=== PATIENT | male | born 1970 | race Caucasian/White ===

== ENCOUNTER 2017-11-03 11:20 | Emergency (ER) | payer MEDICARE, OTHER ==
[2017-11-03 11:25] VITALS: BP 146/80
--- NOTE | 2017-11-03 11:34 | ER Document Report ---
ED Medical Screen (RME) - General Chief Complaint: Fall Stated Complaint: FALL Time Seen by Provider: 11/03/17 11:25 Notes: 47 years old presents today with frequent falls and memory loss for unknown reason. No focal weaknesses, denies any headache. Denies any other constitutional symptoms. Had cervical spinal fusion done in the past. TRAVEL OUTSIDE OF THE [place] IN LAST 30 DAYS: No - Related Data Allergies/Adverse Reactions: No Known Allergies Allergy (Unverified 02/02/13 12:50) Past Medical History - Social History Frequency of alcohol use: None Drug Abuse: None Renal/ Medical History: Reports: Hx Kidney Stones. Denies: Hx Peritoneal Dialysis Past Surgical History: Reports: Hx Orthopedic Surgery Physical Exam - Vital signs Vitals: Temp Pulse Resp BP Pulse Ox 99.0 F 64 16 146/80 H 98 11/03/17 11:24 11/03/17 11:24 11/03/17 11:24 11/03/17 11:24 11/03/17 11:24 Course - Vital Signs Vital signs: Temp Pulse Resp BP Pulse Ox 99.0 F 64 16 146/80 H 98 11/03/17 11:24 11/03/17 11:24 11/03/17 11:24 11/03/17 11:24 11/03/17 11:24
--- NOTE | 2017-11-03 11:59 | RADIOLOGY REPORT (SQ) ---
EXAM DESCRIPTION: CT HEAD WITHOUT COMPLETED DATE/TIME: 11/03/2017 11:47 am REASON FOR STUDY: Fall, memory loss COMPARISON: None. TECHNIQUE: Axial images acquired through the brain without intravenous contrast. Images reviewed wi th bone, brain and subdural windows. Additional sagittal and coronal reconstructions were generated. Images stored on PACS. All CT scanners at this facility use dose modulation, iterative reconstruction, and/or weight based d osing when appropriate to reduce radiation dose to as low as reasonably achievable (ALARA). [facility]: Dose Right [facility]: CareDose [facility]: Dose Right [facility]: Teradose 4D [facility]: Smart Peatix RADIATION DOSE: CT Rad equipment meets quality standard of care and radiation dose reduction techniq ues were employed. CTDIvol: 53.2 mGy. DLP: 1017 mGy-cm. mGy. LIMITATIONS: None. FINDINGS: VENTRICLES: Normal size and contour. CEREBRUM: No masses. No hemorrhage. No midline shift. No evidence for acute infarction. Normal gra y/white matter differentiation. No areas of low density in the white matter. CEREBELLUM: No masses. No hemorrhage. No alteration of density. No evidence for acute infarction. EXTRAAXIAL SPACES: No fluid collections. No masses. ORBITS AND GLOBE: No intra- or extraconal masses. Normal contour of globe without masses. CALVARIUM: No fracture. PARANASAL SINUSES: No fluid or mucosal thickening. SOFT TISSUES: No mass or hematoma. OTHER: No other significant finding. IMPRESSION: NO ACUTE INTRACRANIAL IMAGING FINDINGS. EVIDENCE OF ACUTE STROKE: NO. COMMENT: Quality ID # [id number]: Final reports with documentation of one or more dose reduction techniques (e.g., Automated exposure control, adjustment of the mA and/or kV according to patient size, use of iterative reconstruction technique) TECHNICAL DOCUMENTATION: JOB ID: [id number] [employer]- All Rights Reserved Reading location - IP/workstation name: [email or web address]
[2017-11-03 12:32] LABS: HEMATOCRIT 43.9 % (37.9-51.0); HEMOGLOBIN 15.3 g/dL (13.5-17.0); MEAN CORPUSCULAR HGB CONC 34.9 g/dL (32.0-36.0); MEAN CORPUSCULAR VOLUME 92 fl (80-97); PLATELET COUNT 219 10^3/uL (150-450); RED BLOOD COUNT 4.79 10^6/uL (4.35-5.55); RED CELL DISTRIBUTION WIDTH 13.6 % (11.5-14.0); WHITE BLOOD COUNT 6.6 10^3/uL (4.0-10.5)
[2017-11-03 12:55] LABS: ALANINE AMINOTRANSFERASE 74 U/L (21-72); ALKALINE PHOSPHATASE 70 U/L (38-126); ANION GAP 12 (5-19); ASPARTATE AMINO TRANSFERASE 37 U/L (17-59); BILIRUBIN,DIRECT 0.2 mg/dL (0.0-0.4); BILIRUBIN,TOTAL 0.4 mg/dL (0.2-1.3); BLOOD UREA NITROGEN 21 mg/dL (7-20); CALCIUM 9.5 mg/dL (8.4-10.2); CARBON DIOXIDE 25 mmol/L (22-30); CHLORIDE 106 mmol/L (98-107); GLUCOSE 93 mg/dL (75-110); POTASSIUM 4.7 mmol/L (3.6-5.0); SODIUM 142.5 mmol/L (137-145); TOTAL PROTEIN 6.9 g/dL (6.3-8.2)
--- NOTE | 2017-11-03 13:17 | EKG REPORT ---
SEVERITY:- ABNORMAL ECG - SINUS RHYTHM LEFT ANTERIOR FASCICULAR BLOCK : Confirmed by: Jose Benito MD 03-Nov-2017 13:17:00
--- NOTE | 2017-11-03 14:33 | ER Document Report ---
ED General - General Chief Complaint: Fall Stated Complaint: FALL Time Seen by Provider: 11/03/17 11:25 Notes: Patient fell and hit his chin in some manner Wednesday. He has never had anything like that happen to him. He describes episodes of "missing time" that have been occurring recently about every other week for the past year or more. He simply has lapses of memory and does not remember what happened to him. He has not had any of these episodes witnessed by anyone else. He does not think he has had a seizure because he has not bitten his tongue or lost control of his bladder or bowels or other things that might indicate a seizure. On Wednesday, was a first time he is actually fallen when 1 of these episodes occurred. He woke up on the floor and he had a bruise on his chin. Patient has had some headaches for which he is taking Thomas aspirins. Also has had some blurry vision at times. Has not had any nausea or vomiting. No fever or chills. Patient was told by the [place] [facility] to come here and get a CT scan of his brain. Patient describes very bad outcome from his surgery for cervical spine fusion in 2011. 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 Patient says he walks 20-35 miles a week and or past year or so he has lost 30 pounds. He used to run marathons and participate in triathlete competition. Currently, the patient only takes trazodone for sleep and no other medications for anything. TRAVEL OUTSIDE OF THE [place] IN LAST 30 DAYS: No - Related Data Allergies/Adverse Reactions: No Known Allergies Allergy (Unverified 02/02/13 12:50) Past Medical History - Social History Smoking Status: Former Smoker Frequency of alcohol use: None Drug Abuse: None Family History: Reviewed & Not Pertinent Patient has suicidal ideation: No Patient has homicidal ideation: No - Past Medical History Cardiac Medical History: Denies: Hx Coronary Artery Disease, Hx DVT, Hx Heart Attack Endocrine Medical History: Denies: Hx Diabetes Mellitus Type 1, Hx Diabetes Mellitus Type 2 Renal/ Medical History: Reports: Hx Kidney Stones Past Surgical History: Reports: Hx Orthopedic Surgery - CERVICAL SPINAL FUSION; lumbar spine fusion Review of Systems - Review of Systems Notes: REVIEW OF SYSTEMS: CONSTITUTIONAL : Denies fever. EENT: Denies eye, ear, nose or mouth or throat pain or other symptoms except that the patient does have some bruising with soft tissue swelling at the lower mid-point of the chin. CARDIOVASCULAR: Denies chest pain. Denies feeling any irregular heartbeat or rapid heartbeat. RESPIRATORY: Denies cough, chest congestion, or shortness of breath. GASTROINTESTINAL: Denies abdominal pain or nausea, vomiting, or diarrhea. GENITOURINARY: Denies difficulty or painful urinating, urinary frequency, blood in urine. MUSCULOSKELETAL: Chronic back or neck pain. Denies joint pain or swelling. SKIN: Denies rash or skin lesions. NEUROLOGICAL: See HPI. Does have mild global, mostly frontal, headache. Headaches are relieved by Thomas aspirin. Denies sensory loss or motor deficits. ALL OTHER SYSTEMS REVIEWED AND NEGATIVE. Physical Exam - Vital signs Vitals: Temp Pulse Resp BP Pulse Ox 99.0 F 64 16 146/80 H 98 11/03/17 11:24 11/03/17 11:24 11/03/17 11:24 11/03/17 11:24 11/03/17 11:24 Interpretation: Normal - Notes Notes: PHYSICAL EXAMINATION: GENERAL: Well-appearing, in no acute distress. HEAD: Atraumatic, normocephalic. Midpoint lower chin has some mild soft tissue swelling and visible bruising. EYES: Pupils equal round and reactive to light, extraocular movements intact. No nystagmus. ENT: oropharynx clear without exudates. Moist mucous membranes. Tongue without any injuries. NECK: Normal range of motion, supple. Some postsurgical limitations on movement. LUNGS: Breath sounds clear and equal bilaterally. HEART: Regular rate and rhythm without murmurs. ABDOMEN: Soft, nontender. No guarding or rebound. No masses. BACK: No tenderness throughout entire back. EXTREMITIES: Normal range of motion without pain. NEUROLOGICAL: Normal speech, normal gait. Normal sensory, motor, and reflex exams. Awake, alert, and oriented x3. Cranial nerves normal. PSYCH: Normal mood, normal affect. SKIN: Warm, dry, no rashes. Course - Re-evaluation Re-evalutation: 11/03/17 14:54 Patient remained stable throughout his stay in the department. I provided him with copies of all of his lab results and imaging results. Discussed with patient the need for further workup to try to determine a cause for his apparent syncopal episode as well as his other memory lapse episodes. - Vital Signs Vital signs: Temp Pulse Resp BP Pulse Ox 99.0 F 64 16 146/80 H 98 11/03/17 11:24 11/03/17 11:24 11/03/17 11:24 11/03/17 11:24 11/03/17 11:24 - Laboratory Result Diagrams: 11/03/17 12:15 11/03/17 12:15 Laboratory results interpreted by me: 11/03/17 12:15 BUN 21 H ALT 74 H Discharge - Discharge Clinical Impression: Syncope Condition: Stable Disposition: HOME, SELF-CARE Additional Instructions: SYNCOPAL EPISODE: Syncope (fainting or near-fainting) can occur from many different health problems. Or it can be a simple fainting spell requiring no treatment. It is safe for you to go home, but further evaluation will likely be necessary. Your work-up may include tests for internal bleeding, heart disease, medication problems, or near-strokes. Tests are not always required, however, depending on the nature of your problem. The warning signs of an impending faint include: dizziness, lightheadedness , nausea, hot flashes, tingling, and weakness. If this happens, lay down and put your feet up, then wait until all of these symptoms have passed before standing up again. If these episodes become recurrent, or if you develop chest pain, heart palpitations, mental confusion, blurred vision, or headache, then you should call the physician, or go to the emergency room. NEAR SYNCOPAL EPISODE: Syncope or near syncope (fainting or near-fainting) can occur from many different health problems. Or it can be a simple fainting spell requiring no treatment. It is safe for you to go home, but further evaluation will likely be necessary. Your work-up may include tests for internal bleeding, heart disease, medication problems, or near-strokes. Tests are not always required, however, depending on the nature of your problem. The warning signs of an impending faint include: dizziness, lightheadedness , nausea, hot flashes, tingling, and weakness. If this happens, lay down and put your feet up, then wait until all of these symptoms have passed before standing up again. If these episodes become recurrent, or if you develop chest pain, heart palpitations, mental confusion, blurred vision, or headache, then you should call the physician, or go to the emergency room. NORMAL EXAM AND WORKUP: At this time, your examination and workup show no significant abnormality. No significant abnormal physical findings were noted. All laboratory, EKG, and imaging (x-ray, CT scans, ultrasound) studies that were ordered show no significant abnormality. Although your examination and all studies that were ordered showed no significant abnormal finding, there are no examinations and no studies that are 100% accurate. There is always the possibility that some abnormality could exist and not be detected with physical examination or within the limits and capabilities of laboratory and other studies. You should return or follow up as you were instructed on your visit today for further evaluation if your symptoms do not resolve. Your workup is not complete. You need a geriatric nursing assistant to see if you are having any irregular or abnormal heartbeat. He will also need further studies such as an EEG to rule out the possibility that you are having some form of seizure activity. FOLLOW-UP CARE: If you have been referred to a physician for follow-up care, call the physician s office for an appointment as you were instructed or within the next two days. If you experience worsening or a significant change in your symptoms, notify the physician immediately or return to the Emergency Department at any time for re-evaluation. Follow-up at the [place] [facility] as soon as possible, preferably today, so that they can begin getting you scheduled to get these other studies done.
== END 2017-11-03 14:57 | disposition home or self-care (01) ==
LOC: ER 11:20
DX: R55 Syncope and collapse (principal); S00.83XA Contusion of other part of head, initial encounter; H53.8 Other visual disturbances; W19.XXXA Unspecified fall, initial encounter
CPT/HCPCS: 36415; 70450; 80053; 82607; 82746; 85027; 93005; 93010; 99284

== ENCOUNTER 2018-01-16 14:09 | Emergency (ER) | payer OTHER ==
[2018-01-16] MEDS ORDERED: DIPH/PERTUSS(ACELL)/TETANUS VAC/PF 0.5 ML SYR (>=10YO) IM ONE (14:56)
--- NOTE | 2018-01-16 15:00 | ER Document Report ---
ED Hand/Wrist Injury - General Chief Complaint: Laceration Stated Complaint: LACERATION TO FINGER Time Seen by Provider: 01/16/18 14:41 Mode of Arrival: Ambulatory Information source: Patient Notes: Young male presents to ED for laceration to the tip of the right middle finger. He reports he was cutting his head just with an electric cutter when he grabbed the hedge clipper in the wrong place cutting his finger. Eating is under control. He is alert and oriented respirations regular and unlabored speaking in full sentences. States his last tetanus was around 1999 when he got out of the . He reports he was also bit by numerous fire ants when he accidentally stuck his hand in a fire at home that is the left hand. TRAVEL OUTSIDE OF THE [place] IN LAST 30 DAYS: No - HPI Injury to: Hand, Middle finger Onset: Just prior to arrival Where: Home, Outdoors Timing: Still present Quality of pain: Burning, Sharp Severity: Mild Pain Level: 2 Context: Laceration - Right hand, Other - Left arm ant bites - Related Data Allergies/Adverse Reactions: No Known Allergies Allergy (Unverified 02/02/13 12:50) Past Medical History - General Information source: Patient - Social History Smoking Status: Never Smoker Cigarette use (# per day): No Chew tobacco use (# tins/day): No Smoking Education Provided: No Frequency of alcohol use: None Drug Abuse: None Lives with: Family Family History: Reviewed & Not Pertinent Patient has suicidal ideation: No Patient has homicidal ideation: No - Past Medical History Cardiac Medical History: Reports: None EENT Medical History: Reports: None Neurological Medical History: Reports: None Endocrine Medical History: Reports: None Renal/ Medical History: Reports: Hx Kidney Stones Malignancy Medical History: Reports None GI Medical History: Reports: None Musculoskeletal Medical History: Reports Hx Musculoskeletal Deformity, Reports Hx Musculoskeletal Trauma Skin Medical History: Reports None Psychiatric Medical History: Reports: None Traumatic Medical History: Reports: Hx Fractures - Tib-fib ankle Infectious Medical History: Reports: None Past Surgical History: Reports: Hx Orthopedic Surgery - CERVICAL SPINAL FUSION; lumbar spine fusion, tib-fib left ankle left torn b - Immunizations Immunizations up to date: Yes Hx Diphtheria, Pertussis, Tetanus Vaccination: Yes - 01/16/18 Review of Systems - Review of Systems Constitutional: No symptoms reported EENT: No symptoms reported Cardiovascular: No symptoms reported Respiratory: No symptoms reported Gastrointestinal: No symptoms reported Genitourinary: No symptoms reported Male Genitourinary: No symptoms reported Musculoskeletal: No symptoms reported Skin: Other - ant bites to left wrist and arm laceration to right middle finger Hematologic/Lymphatic: No symptoms reported Neurological/Psychological: No symptoms reported -: Yes All other systems reviewed and negative Physical Exam - Vital signs Vitals: Temp Pulse Resp BP Pulse Ox 98.1 F 68 18 126/77 H 97 01/16/18 14:10 01/16/18 14:10 01/16/18 14:10 01/16/18 14:10 01/16/18 14:10 Interpretation: Normal - General General appearance: Appears well, Alert - HEENT Head: Normocephalic, Atraumatic Eyes: Normal Pupils: PERRL - Respiratory Respiratory status: No respiratory distress Chest status: Nontender Breath sounds: Normal Chest palpation: Normal - Cardiovascular Rhythm: Regular Heart sounds: Normal auscultation Murmur: No - Abdominal Inspection: Normal Distension: No distension Bowel sounds: Normal Tenderness: Nontender Organomegaly: No organomegaly - Back Back: Normal, Nontender - Extremities General upper extremity: Normal color, Normal ROM, Normal temperature General lower extremity: Normal inspection, Nontender, Normal color, Normal ROM , Normal temperature, Normal weight bearing. No: Nicole's sign Forearm: Tender, Other - insect bites to left arm Wrist: Tender - insect bites to left arm Hand: Laceration - laceration to middle finger - Neurological Neuro grossly intact: Yes Cognition: Normal Orientation: AAOx4 O'Brien Coma Scale Eye Opening: Spontaneous Roxana Coma Scale Verbal: Oriented O'Brien Coma Scale Motor: Obeys Commands Roxana Coma Scale Total: 15 Speech: Normal Motor strength normal: LUE, RUE, LLE, RLE Sensory: Normal - Psychological Associated symptoms: Normal affect, Normal mood - Skin Skin Temperature: Warm Skin Moisture: Dry Skin Color: Normal Course - Vital Signs Vital signs: Temp Pulse Resp BP Pulse Ox 98.1 F 68 18 126/77 H 97 01/16/18 14:10 01/16/18 14:10 01/16/18 14:10 01/16/18 14:10 01/16/18 14:10 - Diagnostic Test Radiology reviewed: Image reviewed, Reports reviewed Procedures - Immobilization Right Finger 3rd digit Pre-Proc Neuro Vasc Exam: Normal Immobilizer type: Finger protection Performed by: PCT Post-Proc Neuro Vasc Exam: Normal Alignment checked and good: Yes - Laceration/Wound Repair Right Finger 3rd digit Time completed: 16:05 Wound length (cm): 5 - total Wound's Depth, Shape: Irregular, Stellate, Other - multiple Laceration pre-procedure: Sterile PPE donned, Sterile drapes applied, Shur- Clens applied Anesthetic type: 1% Lidocaine Volume Anesthetic (mLs): 5 Wound explored: Contaminated, Foreign body removed Irrigated w/ Saline (mLs): 300 Wound Repaired With: Sutures Suture Size/Type: 4:0, Ethilon Number of Sutures: 9 Layer Closure?: No Post-procedure wound care: Sterile dressing applied, Splint applied Post-procedure NV exam normal: Yes Complications: No Discharge - Discharge Clinical Impression: Laceration of right middle finger Qualifiers: Encounter type: initial encounter Damage to nail status: without damage Foreign body presence: with foreign body Qualified Code(s): S61.222A - Laceration with foreign body of right middle finger without damage to nail, initial encounter Condition: Stable Disposition: HOME, SELF-CARE Additional Instructions: Hand Laceration A laceration on the hand can present special problems. It may be difficult to keep the wound dry. Motion of the fingers can disturb the healing edges. Your work may involve exposure to damaging chemicals or water. Keep the wound clean and dry. If you can't keep the cut dry, undisturbed, and free of chemical exposure, please discuss this with the doctor. If any water or chemical gets onto the dressing, remove it, blot the wound dry, then apply a fresh bandage. Dressings should be changed every day. If you feel the stitches pulling as you move the hand, a splint or other form of protection is needed. If any signs of infection occur (swelling, redness, increasing tenderness, red streaks, tender lumps in the armpit, or fever), see the doctor immediately. Insect Bites You have been bitten by an insect. These bites can cause two types of swelling: an initial swelling due to insect saliva or injected poison, and a late reaction due to your body's allergic reaction. This initial local reaction may be uncomfortable but is not dangerous. Often there's an itchy "hive" at the bite location. This is treated with antihistamines, cold compresses, and resting the affected body part. The later reaction often develops about the second day. The entire area becomes very swollen, red, itchy, and tender. This is an allergic reaction. Your body is attacking the leftover insect saliva or venom. This type of allergy is unpleasant, but not dangerous. We treat this swelling with cortisone -type medicine. Sometimes we use antibiotics if we're worried about infection. Antihistamines help with the itch. If you develop a fever, chills, a red streak, or swollen glands in the area of the bite, infection may be starting. Return at once. STEROID MEDICATION: You have been given an injection of medicine of the cortisone/steroid class. This medication is used to control inflammation or allergy. It is often continued as a pill for a short period of time, until the acute process subsides. There are usually no side effects from short-term use of cortisone-like medications. Some persons feel an increased sense of well-being and are not sleepy at bedtime. Long-term use of cortisone medications is best avoided, unless required for a severe condition. If your condition does not remit, or relapses after the course of corticosteroid medication, you should consult your physician. Diphenhydramine The use of diphenhydramine (Benadryl) has been recommended to control allergic symptoms. The 25 mg strength is available over- the-counter, as well as the elixir. This antihistamine is used for many symptoms. It's useful for itching, watering eyes and nose, allergic swelling, hives, and insect stings. The medication can be repeated four times daily. Age Elixir (12.5 mg/tsp) 25 mg pill 1 yr 1/4 tsp 2-3 yr 1/2 tsp 4-8 yr 1 tsp 9-14 yr 2 tsp one tab adult 1-2 tabs Antihistamines may cause drowsiness, especially with the first dose. Do not operate machinery or drive while under the effects of the medication. Do not combine the medication with alcohol, or with any other medication without talking to your doctor. Acid-Suppressing Medication You have a prescription for medicine which reduces the stomach's secretion of acid. Examples include Zantac, Tagament, and Pepcid. These drugs are often used to allow healing of ulcers or esophagitis. They may be needed to prevent recurrence of ulcers in some patients, or to prevent damage from acid reflux in the esophagus. Take all medication as prescribed, even after the pain is gone. Regular antacids may be added as needed if you have symptoms while taking this medicine. These medications sometimes are prescribed for allergic reactions because they have anti-histaminic effects and relieve the rash and itching of the reaction. There are usually no side effects from this medication. But, in rare cases and particularly in the elderly, serious problems can occur. Contact your doctor if there is fever, rash, hallucinations, confusion, or unusual bruising. Contact your doctor at once if you develop lightheadedness, black or bloody stool, or bloody vomitus. SOAP CLEANSING: Gently wash the wound daily using a mild soap (like Ivory, Phisoderm, Neutrogena). Use warm water, rubbing gently until all debris, ooze, and crusting have been washed from the wound. Allow to dry briefly (about 10 minutes) after cleaning. Repeat this cleansing at least three times a day for the first two days and then once or twice a day. ANTIBIOTIC OINTMENT PROTECTION: Your wounds are such that dressing them is not practical or optional. After cleansing, you should apply a thin coating of antibiotic ointment ( Bacitracin, not Neosporin) to the wounds at least three times daily. This lessens infection risk, and may decrease the amount of scarring. Use a q-tip or dull butter knife, not your finger, to apply this ointment. Any debris or ooze which builds up in the ointment should be gently rubbed off with a sterile gauze pad. Harder crusting may need to be gently scrubbed off with a clean wash cloth with soap and warm water, perhaps applying a warm, wet wash cloth to the wound for ten minutes first. Development of redness, severe itching, or blistering may mean allergy to the ointment. See the doctor. TETANUS IMMUNIZATION GIVEN: You have been given an immunization against tetanus. Please record this in your records. In general, a booster is needed only once every 10 years. The tetanus shot protects against tetanus or "lockjaw," which is a complication of certain wound infections (the tetanus shot cannot protect against the actual infection). The immunization site may become warm and red due to local reaction. If this occurs, apply warm compresses and take aspirin or ibuprofen to reduce inflammation and discomfort. Return for evaluation if the reaction becomes severe. Cephalexin The antibiotic you've been prescribed is a member of the cephalosporin class. This type of antibiotic covers a wide variety of infections, including those of the skin, lungs, and urinary tract. It's useful for staph infections. This antibiotic is slightly similar to the penicillin family. In rare cases , a person who is allergic to penicillin will also be allergic to this medication. If you have had a severe allergic reaction to penicillin, and have not taken this antibiotic since that time, notify your doctor. Antibiotics which cover many germs ("broad spectrum" antibiotics) are more likely to cause diarrhea or "yeast" infections. Women prone to vaginal yeast problems may suffer an attack after taking this antibiotic. In infants, oral thrush (white spots "stuck" on the cheek) or yeast diaper rash may result. See your doctor if these problems occur. Call at once if you develop itching, hives , shortness of breath, or lightheadedness. FOLLOW-UP CARE: Please return in ___3__ days for an infection check and dressing change. Your sutures should be removed in __8___ days. To facilitate a timely removal of your sutures, you may return to the Emergency Department at [facility]. You do not need to call for an appointment, but the best time to come in for suture removal is early in the morning. If you have been referred to another physician for follow-up care, call that physicians office for an appointment as you were instructed. If you experience a significant change in your laceration, or if you are concerned there may be an infection (swelling, redness, drainage, increasing tenderness, red streaks, tender lumps in the armpit or groin above the laceration, or fever) , return to the Emergency Department immediately re-evaluation. Prescriptions: Cephalexin Monohydrate [Keflex 500 mg Capsule] 500 mg PO Q6H 5 Days capsule Forms: Elevated Blood Pressure Referrals: INNA MOSES MD [Primary Care Provider] - Follow up as needed
[2018-01-16] MEDS ORDERED: LIDOCAINE 1% INJ-PF (10 MG/ML) 30 ML SDV INJ ONE (15:05)
[2018-01-16] MEDS ORDERED: LIDOCAINE 1% INJ (10 MG/ML) 10 ML MDV ONE (15:06)
--- NOTE | 2018-01-16 15:13 | RADIOLOGY REPORT (SQ) ---
EXAM DESCRIPTION: FINGER RIGHT COMPLETED DATE/TIME: 01/16/2018 3:02 pm REASON FOR STUDY: laceration to middle finger COMPARISON: None. NUMBER OF VIEWS: Three views. TECHNIQUE: AP, lateral, and oblique images acquired of the right third finger. LIMITATIONS: None. FINDINGS: MINERALIZATION: Normal. BONES: No acute fracture. No dislocation. Alignment is normal. Mild thumb carpometacarpal osteoart hrosis. SOFT TISSUES: Soft tissue defect overlying the distal 3rd digit. No radiopaque foreign body. No dis secting subcutaneous gas. OTHER: No other significant finding. IMPRESSION: 1. No acute fracture or dislocation. 2. Small soft tissue laceration overlying the distal 3rd digit. No radiopaque foreign body. COMMENT: SITE OF TRAUMA/COMPLAINT MARKED/STAMP COMPLETED: NOT APPLICABLE. TECHNICAL DOCUMENTATION: JOB ID: [id number] [employer]- All Rights Reserved Reading location - IP/workstation name: [email or web address]
[2018-01-16] MEDS ORDERED: CEPHALEXIN 500 MG CAPSULE PO ONE (16:05)
[2018-01-16] MEDS ORDERED: DEXAMETHASONE SOD PHOS INJ 10 MG/1 ML VIAL IM ONE (16:11)
[2018-01-16] MEDS ORDERED: FAMOTIDINE 20 MG TABLET PO ONE (16:11)
[2018-01-16 16:58] VITALS: BP 123/68
== END 2018-01-16 16:57 | disposition home or self-care (01) ==
LOC: ER 14:09
DX: S61.222A Laceration with foreign body of right middle finger without damage to nail, initial encounter (principal); W29.3XXA Contact with powered garden and outdoor hand tools and machinery, initial encounter; Y93.H2 Activity, gardening and landscaping; Y92.009 Unspecified place in unspecified non-institutional (private) residence as the place of occurrence of the external cause; T63.421A Toxic effect of venom of ants, accidental (unintentional), initial encounter
CPT/HCPCS: 99283; 96372; 90471; 73140; 90715; 12002; J3490; J1100

== ENCOUNTER 2018-01-24 13:02 | Emergency (ER) | payer OTHER ==
--- NOTE | 2018-01-24 14:12 | ER Document Report ---
HPI - HPI Pain Level: 1 Notes: Patient presents with request for suture removal to right index finger. Patient states sutures have been in place for 8 days. Patient denies any other complaints. Past Medical History - General Information source: Patient - Social History Smoking Status: Never Smoker Family History: Reviewed & Not Pertinent Patient has suicidal ideation: No Patient has homicidal ideation: No - Past Medical History Cardiac Medical History: Denies: Hx Heart Attack Endocrine Medical History: Denies: Hx Diabetes Mellitus Type 1, Hx Diabetes Mellitus Type 2 Renal/ Medical History: Reports: Hx Kidney Stones. Denies: Hx Peritoneal Dialysis Musculoskeletal Medical History: Reports Hx Musculoskeletal Deformity, Reports Hx Musculoskeletal Trauma Traumatic Medical History: Reports: Hx Fractures - Tib-fib ankle Past Surgical History: Reports: Hx Orthopedic Surgery - CERVICAL SPINAL FUSION; lumbar spine fusion, tib-fib left ankle left torn b - Immunizations Immunizations up to date: Yes Hx Diphtheria, Pertussis, Tetanus Vaccination: Yes - 01/16/18 Vertical Provider Document - CONSTITUTIONAL Notes: PHYSICAL EXAMINATION: GENERAL: Well-appearing, well-nourished and in no acute distress. HEAD: Atraumatic, normocephalic. EYES: Pupils equal round extraocular movements intact, conjunctiva are normal. ENT: Nares patent NECK: Normal range of motion LUNGS: No respiratory distress Musculoskeletal: Normal range of motion NEUROLOGICAL: Normal speech, normal gait. PSYCH: Normal mood, normal affect. SKIN: Warm, Dry, normal turgor, no rashes or lesions noted. Healing laceration to right index finger with sutures in place. - INFECTION CONTROL TRAVEL OUTSIDE OF THE [place] IN LAST 30 DAYS: No Course - Re-evaluation Re-evalutation: Sutures were removed, patient discharged home in stable condition. - Vital Signs Vital signs: Temp Pulse Resp BP Pulse Ox 98.4 F 61 18 121/67 97 01/24/18 13:08 01/24/18 13:08 01/24/18 13:08 01/24/18 13:08 01/24/18 13:08 Discharge - Discharge Clinical Impression: Visit for suture removal Condition: Stable Disposition: HOME, SELF-CARE Additional Instructions: Your sutures were removed today. Please continue to apply a triple antibiotic ointment to the area twice daily, keep covered. Return to the emergency department or your primary care provider if you develop increasing redness, swelling, drainage or any other symptom that is concerning to you. Referrals: INNA MOSES MD [Primary Care Provider] - Follow up as needed
[2018-01-24 14:21] VITALS: BP 121/60
== END 2018-01-24 14:34 | disposition home or self-care (01) ==
LOC: ER 13:02
DX: S61.210D Laceration without foreign body of right index finger without damage to nail, subsequent encounter (principal); X58.XXXD Exposure to other specified factors, subsequent encounter

== ENCOUNTER 2018-12-31 17:22 | Emergency (ER) | payer OTHER ==
[2018-12-31 17:29] VITALS: BP 137/77
--- NOTE | 2018-12-31 17:38 | ER Document Report ---
ED Medical Screen (RME) - General Chief Complaint: Hand Pain Stated Complaint: POSSIBLE INSECT BITE Time Seen by Provider: 12/31/18 17:33 Primary Care Provider: INNA MOSES MD [Primary Care Provider] - Follow up as needed TRAVEL OUTSIDE OF THE [place] IN LAST 30 DAYS: No - HPI Notes: 12/31/18 17:36 Patient is a 48-year-old male no significant past medical history presents com plaining of left hand pain and left wrist pain with unknown etiology that began this afternoon. Patient states that he is working out in his garage, but does not recall any injury. Patient states that he started feeling unwell about an hour ago when he started feeling kind of generally fatigued with extreme soreness to the hand and wrist with some noted swelling to the area. Patient is not sure if he is bit by anything or not. No fever. I have treated and performed a rapid initial assessment of this patient. A comprehensive ED assessment and evaluation of the patient, analysis of test re sults and completion of medical decision making process will be conducted by additional ED providers. PHYSICAL EXAMINATION: GENERAL: Well-appearing, well-nourished and in no acute distress. A&Ox4. Answers questions appropriately. Left wrist/hand: + swelling near the 4th-5th MCP joints and to the distal wrist with + tenderness associated. N/V intact distal. there is an ecchymotic area with mild erythema associated near the MCP joints. - Related Data Allergies/Adverse Reactions: No Known Allergies Allergy (Verified 12/31/18 17:28) Past Medical History - Past Medical History Cardiac Medical History: Denies: Hx Heart Attack Endocrine Medical History: Denies: Hx Diabetes Mellitus Type 1, Hx Diabetes Mellitus Type 2 Renal/ Medical History: Reports: Hx Kidney Stones. Denies: Hx Peritoneal Dialysis Musculoskeltal Medical History: Reports Hx Musculoskeletal Deformity, Reports Hx Musculoskeletal Trauma Traumatic Medical History: Reports: Hx Fractures - Tib-fib ankle Past Surgical History: Reports: Hx Orthopedic Surgery - CERVICAL SPINAL FUSION; lumbar spine fusion, tib-fib left ankle left torn b - Immunizations Immunizations up to date: Yes Hx Diphtheria, Pertussis, Tetanus Vaccination: Yes - 01/16/18 Physical Exam - Vital signs Vitals: Temp Pulse Resp BP Pulse Ox 98.2 F 62 16 137/77 H 97 12/31/18 17:26 12/31/18 17:26 10/12/19 17:26 12/31/18 17:26 12/31/18 17:26 Course - Vital Signs Vital signs: Temp Pulse Resp BP Pulse Ox 98.2 F 62 16 137/77 H 97 12/31/18 17:26 12/31/18 17:26 12/31/18 17:26 12/31/18 17:26 12/31/18 17:26 Doctor's Discharge - Discharge Referrals: INNA MOSES MD [Primary Care Provider] - Follow up as needed
--- NOTE | 2018-12-31 18:03 | RADIOLOGY REPORT (SQ) ---
EXAM DESCRIPTION: WRIST LEFT 3 VIEWS COMPLETED DATE/TIME: 12/31/2018 5:51 pm REASON FOR STUDY: pain COMPARISON: None. NUMBER OF VIEWS: Three views. TECHNIQUE: AP, lateral, and oblique radiographic images acquired of the left wrist. LIMITATIONS: None. FINDINGS: MINERALIZATION: Normal. BONES: No acute fracture or dislocation. No worrisome bone lesions. Normal alignment. SOFT TISSUES: A rounded dystrophic calcification is seen adjacent to the scaphoid. OTHER: No other significant finding. IMPRESSION: No evidence of acute osseous injury. Dystrophic calcification seen within the soft tiss ues is consistent with sequela of remote trauma. TECHNICAL DOCUMENTATION: JOB ID: [id number] [employer]- All Rights Reserved Reading location - IP/workstation name: [email or web address]
--- NOTE | 2018-12-31 18:05 | RADIOLOGY REPORT (SQ) ---
EXAM DESCRIPTION: HAND LEFT 3 VIEWS COMPLETED DATE/TIME: 12/31/2018 5:51 pm REASON FOR STUDY: pain COMPARISON: None. EXAM PARAMETERS: NUMBER OF VIEWS: Three views. TECHNIQUE: AP, lateral and oblique radiographic images acquired of the left hand. LIMITATIONS: None. FINDINGS: MINERALIZATION: Normal. BONES: No acute fracture or dislocation. No worrisome bone lesions. JOINTS: No effusions. SOFT TISSUES: Dystrophic calcifications are seen within the soft tissues adjacent to the scaphoid and dorsal to the carpals. OTHER: No other significant finding. IMPRESSION: No evidence of acute osseous injury. Dystrophic calcifications seen within the soft tis sues is consistent with sequela of remote trauma. TECHNICAL DOCUMENTATION: JOB ID: [id number] [employer]- All Rights Reserved Reading location - IP/workstation name: [email or web address]
[2018-12-31 18:09] LABS: ABSOLUTE EOSINOPHILS # (AUTO) 0.2 10^3/uL (0.0-0.6); ABSOLUTE LYMPHOCYTES (AUTO) 2.1 10^3/uL (0.5-4.7); ABSOLUTE MONOCYTES (AUTO) 0.7 10^3/uL (0.1-1.4); ABSOLUTE NEUT (AUTO) 4.3 10^3/uL (1.7-8.2); BASOPHILS % (AUTO) 0.5 % (0-2); EOSINOPHILS % (AUTO) 2.4 % (0-6); HEMATOCRIT 43.1 % (37.9-51.0); HEMOGLOBIN 14.7 g/dL (13.5-17.0); MEAN CORPUSCULAR HEMOGLOBIN 32.6 pg (27.0-33.4); MEAN CORPUSCULAR HGB CONC 34.2 g/dL (32.0-36.0); MEAN CORPUSCULAR VOLUME 95 fl (80-97); MONOCYTES % (AUTO) 9.4 % (3-13); PLATELET COUNT 212 10^3/uL (150-450); RED BLOOD COUNT 4.53 10^6/uL (4.35-5.55); RED CELL DISTRIBUTION WIDTH 13.4 % (11.5-14.0); SEGMENTED NEUTROPHILS % (AUTO) 58.7 % (42-78); TOTAL CELLS COUNTED % (AUTO) 100 %; WHITE BLOOD COUNT 7.2 10^3/uL (4.0-10.5)
[2018-12-31 18:20] LABS: INTERNATIONAL RATION (INR) 1.06; PROTHROMBIN TIME 13.8 SEC (11.4-15.4)
[2018-12-31 18:21] LABS: PARTIAL THROMBOPLASTIN TIME 26.8 SEC (23.5-35.8)
[2018-12-31 18:29] LABS: ALKALINE PHOSPHATASE 60 U/L (38-126); ANION GAP 10 (5-19); ASPARTATE AMINO TRANSFERASE 23 U/L (17-59); BILIRUBIN,DIRECT 0.2 mg/dL (0.0-0.4); BILIRUBIN,TOTAL 0.3 mg/dL (0.2-1.3); BLOOD UREA NITROGEN 18 mg/dL (7-20); CARBON DIOXIDE 21 mmol/L (22-30); CHLORIDE 112 mmol/L (98-107); GLUCOSE 111 mg/dL (75-110); POTASSIUM 4.2 mmol/L (3.6-5.0); TOTAL PROTEIN 6.6 g/dL (6.3-8.2)
== END 2018-12-31 19:55 | disposition left against medical advice (07) ==
LOC: ER 17:22
DX: Z53.21 Procedure and treatment not carried out due to patient leaving prior to being seen by health care provider (principal); M79.642 Pain in left hand; M25.532 Pain in left wrist; R53.83 Other fatigue
CPT/HCPCS: 36415; 80053; 85025; 85610; 85730; 99281

== ENCOUNTER 2019-01-05 12:03 | Emergency (ER) | payer OTHER ==
[2019-01-05 12:19] VITALS: BP 128/74
--- NOTE | 2019-01-05 13:05 | ER Document Report ---
HPI - HPI Time Seen by Provider: 01/05/19 12:55 Notes: Patient is a 40-year-old male presenting to the emergency department with pain, swelling and redness to his left hand. Patient reports he believes he was bitten by an insect 5 days ago. He reports he came to the emergency department for treatment 2 days ago and had labs drawn but left prior to full treatment as his PTSD was taking in and could not wait any longer. Patient denies any drainage from the area and denies any fevers. Past Medical History - General Information source: Patient - Social History Smoking Status: Never Smoker Frequency of alcohol use: None Drug Abuse: None Family History: Reviewed & Not Pertinent - Past Medical History Cardiac Medical History: Denies: Hx Heart Attack Endocrine Medical History: Denies: Hx Diabetes Mellitus Type 1, Hx Diabetes Mellitus Type 2 Renal/ Medical History: Reports: Hx Kidney Stones. Denies: Hx Peritoneal Dialysis Musculoskeletal Medical History: Reports Hx Musculoskeletal Deformity, Reports Hx Musculoskeletal Trauma Psychiatric Medical History: Reports: Hx Post Traumatic Stress Disorder Traumatic Medical History: Reports: Hx Fractures - Tib-fib ankle Past Surgical History: Reports: Hx Appendectomy, Hx Cholecystectomy, Hx Orthopedic Surgery - CERVICAL SPINAL FUSION; lumbar spine fusion, tib-fib left ankle left torn b - Immunizations Immunizations up to date: Yes Hx Diphtheria, Pertussis, Tetanus Vaccination: Yes - 01/16/18 [facility] Provider Document - CONSTITUTIONAL Notes: PHYSICAL EXAMINATION: GENERAL: Well-appearing, well-nourished and in no acute distress. HEAD: Atraumatic, normocephalic. EYES: Pupils equal round extraocular movements intact, conjunctiva are normal. ENT: Nares patent NECK: Normal range of motion LUNGS: No respiratory distress Musculoskeletal: Normal range of motion to left hand, cap refill less than 3 seconds, strong radial pulse. Normal motor and sensation distal to area of concern. NEUROLOGICAL: Normal speech, normal gait. PSYCH: Normal mood, normal affect. SKIN: Erythema and mild warmth noted to dorsal surface of left hand, cap refill less than 3 seconds. No induration or fluctuance noted. - INFECTION CONTROL TRAVEL OUTSIDE OF THE [place] IN LAST 30 DAYS: No Course - Re-evaluation Re-evalutation: Patient has what appears to be cellulitis. There is no obvious drainable abscess. He has full range of motion of his left hand and is neurovascularly intact. We will start patient on oral antibiotics and give him strict ED return precautions. Patient verbalizes understanding and agreement with this plan. The patient's emergency department workup and current diagnosis were explained to the patient and or family. Follow-up instructions were provided. Medications if prescribed were discussed. Instructions for when to return to the emergency department including specific worrisome symptoms were discussed with the patient and/or family. - Vital Signs Vital signs: Temp Pulse Resp BP Pulse Ox 98.4 F 99 18 128/74 H 98 01/05/19 12:19 01/05/19 12:19 01/05/19 12:19 01/05/19 12:01/05/19 12:19 Discharge - Discharge Clinical Impression: Cellulitis Qualifiers: Site of cellulitis: extremity Site of cellulitis of extremity: upper extremity Laterality: left Qualified Code(s): L03.114 - Cellulitis of left upper limb Condition: Stable Disposition: HOME, SELF-CARE Additional Instructions: The rash is likely due to infection of your skin. You need to take the antibiotics as prescribed. Do not stop even if the rash goes away until you have completed all the antibiotics. The area of redness was traced out here in the emergency department with a marking pen. You need to return to emergency department if the redness spreads outside of this area by more than 2 cm in any direction. You should also return if you develop fevers with temperature greater than 101, persistent vomiting, worsening pain, or have any other symptoms that are concerning to you. Prescriptions: Cephalexin [Cephalexin 500 MG Tablet] 1 tab PO BID #14 tablet Referrals: [facility] [Primary Care Provider] - Follow up as needed
== END 2019-01-05 13:10 | disposition home or self-care (01) ==
LOC: ER 12:03
DX: L03.114 Cellulitis of left upper limb (principal); M79.642 Pain in left hand; F43.10 Post-traumatic stress disorder, unspecified; Z87.442 Personal history of urinary calculi; Z90.49 Acquired absence of other specified parts of digestive tract; Z98.1 Arthrodesis status
CPT/HCPCS: 99283

== ENCOUNTER 2020-03-20 12:25 | Emergency (ER) | payer OTHER ==
[2020-03-20 12:42] VITALS: BP 145/97
[2020-03-20] MEDS ORDERED: DIPH/PERTUSS(ACELL)/TETANUS VAC/PF 0.5 ML SYR (>=10YO) IM ONE (12:51)
--- NOTE | 2020-03-20 12:57 | ER Document Report ---
ED Medical Screen (RME) - General Chief Complaint: Foot Injury Stated Complaint: RIGHT FOOT PAIN/STEPPED ON SOMETHING Time Seen by Provider: 03/20/20 12:46 Primary Care Provider: BITA MIGUEL PA-C [Primary Care Provider] - Follow up as needed Notes: Patient presents complaining about possible foreign body to the lateral aspect of his right foot. Patient denies any known injury. Patient denies any history of neuropathy or diabetes. Patient noticed the discomfort yesterday although did not have an injury yesterday. I have greeted and performed a rapid initial assessment of this patient. A comprehensive ED assessment and evaluation of the patient, analysis of test results and completion of the medical decision making process will be conducted by additional ED providers. TRAVEL OUTSIDE OF THE [place] IN LAST 30 DAYS: No - Related Data Allergies/Adverse Reactions: No Known Allergies Allergy (Verified 01/05/19 13:04) Past Medical History - Past Medical History Cardiac Medical History: Denies: Hx Heart Attack Endocrine Medical History: Denies: Hx Diabetes Mellitus Type 1, Hx Diabetes Mellitus Type 2 Renal/ Medical History: Reports: Hx Kidney Stones. Denies: Hx Peritoneal Dialysis Musculoskeltal Medical History: Reports Hx Musculoskeletal Deformity, Reports Hx Musculoskeletal Trauma Psychiatric Medical History: Reports: Hx Post Traumatic Stress Disorder Traumatic Medical History: Reports: Hx Fractures - Tib-fib ankle Past Surgical History: Reports: Hx Appendectomy, Hx Cholecystectomy, Hx Orthopedic Surgery - CERVICAL SPINAL FUSION; lumbar spine fusion, tib-fib left ankle left torn b - Immunizations Immunizations up to date: Yes Hx Diphtheria, Pertussis, Tetanus Vaccination: Yes - 01/16/18 Physical Exam - Vital signs Vitals: Temp Pulse Resp BP Pulse Ox 98.1 F 85 16 145/97 H 95 03/20/20 12:03/20/20 12:03/20/20 12:03/20/20 12:03/20/20 12:27 - General Notes: Multiple small fissures to the lateral aspect and plantar surface of right foot, patient with marked tenderness with light palpation of the lateral aspect of the foot Course - Vital Signs Vital signs: Temp Pulse Resp BP Pulse Ox 98.1 F 85 16 145/97 H 95 03/20/20 12:03/20/20 12:03/20/20 12:03/20/20 12:20 12:27 Doctor's Discharge - Discharge Referrals: BITA MIGUEL PA-C [Primary Care Provider] - Follow up as needed
[2020-03-20] MEDS ORDERED: IBUPROFEN 800 MG TABLET PO ONE (13:01)
--- NOTE | 2020-03-20 13:01 | ER Document Report ---
HPI - HPI Patient complains to provider of: Right foot pain Time Seen by Provider: 03/20/20 12:46 Onset: Yesterday Onset/Duration: Gradual Quality of pain: Achy Pain Level: 1 Context: Patient presents complaining of right lateral foot pain that he noticed yesterday. Patient states he is concerned he may have stepped on an unknown object. Patient does not recall stepping on an object but is concerned he may have a foreign body in the foot. Patient denies any history of diabetes or neuropathy. Associated Symptoms: Other - Right foot pain Exacerbated by: Standing, Movement, Walking Relieved by: Denies Similar symptoms previously: No Recently seen / treated by doctor: No - ROS ROS below otherwise negative: Yes Systems Reviewed and Negative: Yes All other systems reviewed and negative - CONSTITUTIONAL Constitutional: DENIES: Fever - NEURO Neurology: DENIES: Weakness - MUSCULOSKELETAL Musculoskeletal: REPORTS: Extremity pain Past Medical History - General Information source: Patient - Social History Smoking Status: Never Smoker Family History: Reviewed & Not Pertinent - Past Medical History Cardiac Medical History: Denies: Hx Heart Attack Endocrine Medical History: Denies: Hx Diabetes Mellitus Type 1, Hx Diabetes Mellitus Type 2 Renal/ Medical History: Reports: Hx Kidney Stones. Denies: Hx Peritoneal Dialysis Musculoskeletal Medical History: Reports Hx Musculoskeletal Deformity, Reports Hx Musculoskeletal Trauma Psychiatric Medical History: Reports: Hx Post Traumatic Stress Disorder Traumatic Medical History: Reports: Hx Fractures - Tib-fib ankle Past Surgical History: Reports: Hx Appendectomy, Hx Cholecystectomy, Hx Orthopedic Surgery - CERVICAL SPINAL FUSION; lumbar spine fusion, tib-fib left ankle left torn b - Immunizations Immunizations up to date: Yes Hx Diphtheria, Pertussis, Tetanus Vaccination: Yes - 01/16/18 [facility] Provider Document - CONSTITUTIONAL Agree With Documented VS: Yes Exam Limitations: No Limitations General Appearance: WD/WN, No Apparent Distress - INFECTION CONTROL TRAVEL OUTSIDE OF THE [place] IN LAST 30 DAYS: No - HEENT HEENT: Atraumatic, Normocephalic - NECK Neck: Normal Inspection - RESPIRATORY Respiratory: No Respiratory Distress - CARDIOVASCULAR Pulses: Normal: Dorsalis pedis - MUSCULOSKELETAL/EXTREMETIES Musculoskeletal/Extremeties: MAEW, Tender - Tenderness over distal fifth metatarsal, multiple small superficial fissures to the lateral aspect of foot and plantar surface of foot - NEURO Level of Consciousness: Awake, Alert, Appropriate Motor/Sensory: No Motor Deficit - DERM Integumentary: Warm, Dry Notes: 1.5 cm fissure to the lateral aspect of right foot area tender to palpation Course - Re-evaluation Re-evalutation: 03/20/20 14:21 Called patient from [facility] as room is available, patient not in [facility] at this time, will check back 03/20/20 14:43 Called patient from [facility], no answer 03/20/20 15;00 Patient not in [facility], suspect patient eloped - Vital Signs Vital signs: Temp Pulse Resp BP Pulse Ox 98.1 F 85 16 145/97 H 95 03/20/20 12:27 03/20/20 12:27 03/20/20 12:27 03/20/20 12:27 03/20/20 12:27 - Laboratory Results Critical Laboratory Results Reviewed: No Critical Results - Radiology Results Critical Radiology Results Reviewed: No Critical Results Discharge - Discharge Clinical Impression: Right foot pain Disposition: ELOPED Referrals: BITA MIGUEL PA-C [Primary Care Provider] - Follow up as needed
--- NOTE | 2020-03-20 13:40 | RADIOLOGY REPORT (SQ) ---
EXAM DESCRIPTION: FOOT RIGHT COMPLETE IMAGES COMPLETED DATE/TIME: 03/20/2020 1:18 pm REASON FOR STUDY: ?FB to r lat foot COMPARISON: None. NUMBER OF VIEWS: Three views. TECHNIQUE: AP, lateral and oblique radiographic images acquired of the right foot. LIMITATIONS: None. FINDINGS: MINERALIZATION: Normal. BONES: No acute fracture or dislocation. No worrisome bone lesions. JOINTS: No effusions. SOFT TISSUES: No soft tissue swelling. No foreign body. OTHER: No other significant finding. IMPRESSION: No acute finding. No radiopaque foreign body. TECHNICAL DOCUMENTATION: JOB ID: [id number] 2010 [employer]- All Rights Reserved Reading location - IP/workstation name: [email or web address]
== END 2020-03-20 14:25 | disposition left against medical advice (07) ==
LOC: ER 12:25
DX: M79.671 Pain in right foot (principal); Z87.442 Personal history of urinary calculi; Z98.1 Arthrodesis status
CPT/HCPCS: 99281